=== PATIENT | female | born 1950 | race Caucasian/White ===

== ENCOUNTER → 2016-11-26 | Outpatient (CLI) | payer OTHER ==
--- NOTE | 2016-11-26 12:19 | FL ---
EXAMINATION TYPE: FL barium enema DATE OF EXAM: 11/26/2016 12:00 PM COMPARISON: NONE HISTORY: Incomplete colonoscopy 6 months ago. Anemia for last 2-3 months per order. TECHNIQUE: A double contrast barium enema study is performed. A total of 3 minutes 30 seconds of flu oroscopic time was utilized during procedure. FINDINGS: Insurance Salesman view of the abdomen shows overall nonspecific felt to be non-obstructive bowel gas p attern. Cholecystectomy clips are present. There are additional clips and sutures scattered throughou t the left mid abdomen and right upper pelvis from prior bowel surgery. There are numerous coils vent ral wall hernia repair surgery identified. Barium enema study was then performed. Exam is noted suboptimal due to patient's body habitus as well as having markedly redundant sigmoid colon, this causes overlap limiting evaluation particularly for polyps. There is no evidence of any obstructing or constricting lesion throughout the colon. Colon i s successfully filled to the cecum. There is diverticular disease throughout the colon most pronounce d involving the left and sigmoid colon. There is suspected successful filling to the cecum with a sm all segment right colon. This could be correlated with CT if desired to confirm Appendix was not filled. Terminal ileum was not refluxed. IMPRESSION: Suboptimal study, no obvious constricting mass identified. Diverticular disease noted. C onsider CT colongraphy if symptoms persist.
== END | disposition home or self-care (01) ==
LOC: RADFLMAIN 09:52
PROVIDERS: ATTEND Family Medicine
DX: K57.30 Diverticulosis of large intestine without perforation or abscess without bleeding (principal)
CPT/HCPCS: 74270

== ENCOUNTER → 2017-09-28 | Outpatient (CLI) | payer MEDICARE, OTHER ==
--- NOTE | 2017-09-28 09:49 | MR ---
EXAMINATION TYPE: MR thoracic spine wo/w con DATE OF EXAM: 09/28/2017 COMPARISON: NONE HISTORY: Mid back pain, tingling, F/U on MS Standard multiplanar, multisequence MRI departmental protocol Multiplanar, multisequence images of the thoracic spine were acquired. Diffusion weighted imaging was performed. FINDINGS: Paraspinal soft tissues are normal. There is mild to moderate levoscoliosis. Vertebral body height and alignment are maintained. There is a prominent hemangioma in the T4 vertebr al body. Cord signal is normal. No discal protrusion is seen. The intervertebral foramina are well maintained. There is mild spondylo sis deformans in the mid to lower dorsal spine. IMPRESSION: 1. NO ACUTE ABNORMALITY. 2. NO SIGNIFICANT COMPRESSIVE DISCOPATHY OR NEURAL COMPRESSION. 3. MILD DEGENERATIVE CHANGE.
== END | disposition home or self-care (01) ==
LOC: RADMRIMAIN 08:33
PROVIDERS: ATTEND Psychiatry & Neurology Neurology
DX: M47.814 Spondylosis without myelopathy or radiculopathy, thoracic region (principal)
CPT/HCPCS: 72157; A9581

== ENCOUNTER 2021-01-11 17:01 | Emergency (ER) | payer MEDICARE, OTHER ==
[2021-01-11 17:13] VITALS: RESP 18; TEMP 97
[2021-01-11] MEDS ORDERED: HYDROmorphone 0.5 MG/0.5 ML SYRINGE IVP STA (17:19)
[2021-01-11] MEDS ORDERED: KETOROLAC 15 MG/ML 1 ML VIAL IVP STA (17:19)
[2021-01-11] MEDS ORDERED: ONDANSETRON 4 MG/2 ML VIAL IVP STA (17:19)
--- NOTE | 2021-01-11 17:23 | ED ---
General Adult HPI - General Chief complaint: Fall Stated complaint: Fall Time Seen by Provider: 01/11/21 17:03 Source: patient, EMS Mode of arrival: EMS Limitations: no limitations - History of Present Illness Initial comments: 70 year-old female patient presents to the emergency department for evaluation of right lower leg and ankle pain. Patient slipped and fell prior to arrival. States she felt and heard a pop during the fall. She is having significant pain to the right lower leg and ankle. Denies any foot pain. Denies numbness or tingling to the foot. States she landed on her buttocks. Denies hitting her head or losing consciousness. Denies any low back pain. She did arrive by EMS, did not receive any pain medication. She denies use of blood thinners. Denies any other injury. Patient denies any headache, neck pain, chest pain, shortness of breath, dizziness, weakness, abdominal pain, nausea, vomiting, or difficulties with bowel movements or urination. - Related Data Home Medications Medication Instructions Recorded Confirmed Calcipotriene 02/07/15 02/07/15 Cyanocobalamin [Vitamin B-12] 1,000 mcg PO DAILY 02/07/15 02/07/15 Donepezil HCl 10 mg PO DAILY 02/07/15 02/07/15 Furosemide 20 mg PO DAILY 02/07/15 02/07/15 Gabapentin [Neurontin] 300 mg PO BID 02/07/15 02/07/15 Iron 65 mg PO DAILY 02/07/15 02/07/15 Potassium Chloride ER [K-Dur 10] 10 meq PO DAILY 02/07/15 02/07/15 Sertraline HCl [Zoloft] 100 mg PO DAILY 02/07/15 02/07/15 Spironolactone 50 mg PO DAILY 02/07/15 02/07/15 Triamcinolone 0.1% Cream [Kenalog 02/07/15 02/07/15 0.1% Cream] buPROPion HCL [Bupropion HCl Sr] 200 mg PO BID 02/07/15 02/07/15 traMADol HCL [Ultram] 100 mg PO BID 02/07/15 02/07/15 traZODone HCL [Desyrel] 50 mg PO HS 02/07/15 02/07/15 Allergies Allergy/AdvReac Type Severity Reaction Status Date / Time amoxicillin trihydrate AdvReac Rash/Hives Verified 02/07/15 10:45 [From Augmentin] ciprofloxacin [From Cipro] AdvReac Rash/Hives Verified 02/07/15 10:45 ciprofloxacin HCl AdvReac Rash/Hives Verified 02/07/15 10:45 [From Cipro] potassium clavulanate AdvReac Rash/Hives Verified 02/07/15 10:45 [From Augmentin] Review of Systems ROS Statement: Those systems with pertinent positive or pertinent negative responses have been documented in the HPI. ROS Other: All systems not noted in ROS Statement are negative. Past Medical History Past Psychological History: Depression Smoking Status: Former smoker Past Alcohol Use History: None Reported Past Drug Use History: None Reported General Exam Limitations: no limitations General appearance: alert, in no apparent distress, other (Physical well- developed, well-nourished adult female patient in no acute distress. Vital signs upon presentation are temperature 97.0F, pulse 80, respirations 18, blood pressure 140/92, pulse ox 95% on room air.) Head exam: Present: atraumatic, normocephalic, normal inspection Eye exam: Present: normal appearance, PERRL, EOMI. Absent: scleral icterus, conjunctival injection, periorbital swelling ENT exam: Present: normal exam, normal oropharynx, mucous membranes moist Neck exam: Present: normal inspection, full ROM, other (Nontender, no step-off, no deformity to firm midline palpation of the posterior cervical spine. Full range of motion without pain or limitation.). Absent: tenderness, meningismus, lymphadenopathy Respiratory exam: Present: normal lung sounds bilaterally. Absent: respiratory distress, wheezes, rales, rhonchi, stridor Cardiovascular Exam: Present: regular rate, normal rhythm, normal heart sounds. Absent: systolic murmur, diastolic murmur, rubs, gallop, clicks GI/Abdominal exam: Present: soft, normal bowel sounds. Absent: distended, tenderness, guarding, rebound, rigid Extremities exam: Present: full ROM, tenderness (Right distal lower extremity), normal capillary refill, other (She has soft tissue swelling surrounding the right distal lower leg and ankle. There is ecchymosis over the anterior aspect of the lower leg. Skin is otherwise pink, warm, dry. Cap refill less than 3 seconds. Pedal pulses 2+. No proximal tib-fib tenderness. No fifth metatarsal tenderness). Absent: normal inspection, pedal edema, joint swelling, calf tenderness Back exam: Present: normal inspection, other (Nontender, no step-off, no deformity to firm midline palpation of the thoracic and lumbar vertebrae. Full range of motion without pain or limitation.). Absent: vertebral tenderness Neurological exam: Present: alert, oriented X3, CN II-XII intact Psychiatric exam: Present: normal affect, normal mood Skin exam: Present: warm, dry, intact, normal color. Absent: rash Course Vital Signs 01/11/21 01/11/21 01/11/21 17:05 17:12 18:12 Temperature 97 F L Pulse Rate 80 96 72 Respiratory 18 18 18 Rate Blood Pressure 140/92 124/76 102/81 O2 Sat by Pulse 95 98 98 Oximetry Procedures - Orthopedic Splinting/Casting Injury #1 Side: right Lower Extremity Injury Location: short leg, ankle Lower Extremity Immobilizer: posterior splint, stirrup splint, Onel wrap, synthetic pre-padded splint Additional Comments: Neurovascular status intact after spent application. Skin to the foot is pink, warm, dry. Cap refill less than 3 seconds. Patient denies numbness or tingling. Medical Decision Making - Medical Decision Making 70 year-old female patient presented to the emergency department for evaluation of right ankle and lower leg pain. Physical examination revealed significant soft tissue swelling and ecchymosis over the distal right lower leg and ankle. Neurovascular status is intact. Pain medication was provided. Xray was obtained and showed an oblique fracture through the distal tib/fib. She was placed in a posterior OCL and Ankle stirrup splint. Orthopedics was consulted and recommeded transfer to [facility] for ortho/trauma. [facility] was contacted, their ortho specialist Dr. Pinzon agreed to care for the patient. She will be sent to their ED. Patient is agreeable with this plan. Case discussed with my attending Dr. Barcenas. - Radiology Data Radiology results: report reviewed, image reviewed Reviews of the right ankle are obtained. Report was reviewed in its entirety. Impression by Dr. Bhat shows acute nondisplaced fractures of the distal tibia and fibula. Disposition Clinical Impression: Closed fracture of distal end of right fibula and tibia Disposition: OTHER INSTITUTION NOT DEFINED Condition: Serious Referrals: Rosita Srivastava DO [Primary Care Provider] - 1-2 days - Out of Hospital Transfer - Req. Specs Out of Hospital Transfer - Requested Specifics: Other Emergency Center ([facility])
--- NOTE | 2021-01-11 17:59 | XR ---
EXAMINATION TYPE: XR ankle complete RT DATE OF EXAM: 01/11/2021 COMPARISON: NONE HISTORY: Fall. Pain. TECHNIQUE: 3 views FINDINGS: There is nondisplaced oblique fracture of the distal tibial and fibular metaphyses. Ankle m ortise is anatomic. There is soft tissue swelling around the ankle. There is mild plantar calcaneal s purring. Subtalar joint is intact. IMPRESSION: Acute nondisplaced fractures of the distal tibia and fibula.
[2021-01-11] MEDS ORDERED: HYDROmorphone 1 MG/ML 1 ML SYRINGE IVP STA (18:23)
[2021-01-11 18:35] VITALS: BP 102/81; PULSE 72
== END 2021-01-11 19:20 | disposition other institution (70) ==
LOC: EC 17:01
DX: S82.64XA Nondisplaced fracture of lateral malleolus of right fibula, initial encounter for closed fracture (principal); S82.234A Nondisplaced oblique fracture of shaft of right tibia, initial encounter for closed fracture; F32.9 Major depressive disorder, single episode, unspecified; Z87.891 Personal history of nicotine dependence; W01.0XXA Fall on same level from slipping, tripping and stumbling without subsequent striking against object, initial encounter
CPT/HCPCS: 73610; 99284; 29515; J2405; J1170 ×2; J1885

== ENCOUNTER → 2022-10-01 | Outpatient (CLI) | payer MEDICARE ==
--- NOTE | 2022-10-03 07:33 | MM ---
Reason for Exam: Screening (asymptomatic). Last mammogram was performed 3 year(s) and 1 month(s) ago. Patient History: Menarche at age 13. First Full-Term at age 23. Postmenopausal. Patient used Hormonal Contraceptives for 1 year. 1994, Benign Cyst Aspiration on the left side. 1994, Benign Excisional Biopsy on the left side. Sister had breast cancer, age 42. Mother had breast cancer, age 55. Sister had breast cancer, age 60. Risk Values: Laverne 5 year model risk: 8.9%. NCI Lifetime model risk: 25.0%. Prior Study Comparison: 02/01/2010 Bilateral Screening Mammogram, [facility]. 06/06/2012 Bilateral Screening Mammogram, [facility]. 04/21/2014 Bilateral Screening Mammogram, [facility]. 09/03/2019 Bilateral MG screening mammo w CAD - 2, [facility]. Tissue Density: The breast tissue is heterogeneously dense. This may lower the sensitivity of mammography. Findings: Analyzed By CAD. There is no suspicious group of microcalcifications or new suspicious mass in either breast. Overall Assessment: Negative, BI-RAD 1 Management: Screening Mammogram of both breasts in 1 year. A clinical breast exam by your physician is recommended on an annual basis and results should be correlated with mammographic findings. Electronically signed and approved by: Da Hernandes M.D. Radiologis
== END | disposition home or self-care (01) ==
LOC: RADMAMWWP 16:00
PROVIDERS: ATTEND Family Medicine
DX: Z12.31 Encounter for screening mammogram for malignant neoplasm of breast (principal); Z80.3 Family history of malignant neoplasm of breast
CPT/HCPCS: 77063; 77067

== ENCOUNTER → 2023-01-24 | Outpatient (CLI) | payer MEDICARE ==
[2023-01-24 16:01] LABS: African American GFR (CKD) >90 (>60 ml/min/1.73 sqM); Blood Urea Nitrogen 20 mg/dL (7-17); Non-African American GFR(CKD) >90 (>60 ml/min/1.73 sqM)
--- NOTE | 2023-01-24 18:56 | CT ---
EXAMINATION TYPE: CT abdomen pelvis w con CT DLP: 1768 mGycm, Automated exposure control for dose reduction was used. DATE OF EXAM: 01/24/2023 5:44 PM COMPARISON: None CLINICAL INDICATION:Female, 72 years old with history of R59.0; Frequent UTIs, swollen lymph nodes. TECHNIQUE: Axial CT of the abdomen and pelvis. Sagittal and coronal reformats were created on a [employer] workstation. Contrast used:100 mL of Isovue 300 with IV Contrast, Oral contrast used: with Oral Contrast FINDINGS: LOWER CHEST: Unremarkable ABDOMEN LIVER: Unremarkable GALLBLADDER AND BILE DUCTS: Gallbladder is surgically absent. PANCREAS: Pancreatic divisum. SPLEEN: Unremarkable. ADRENAL GLANDS: Unremarkable. KIDNEYS AND URETERS: No evidence of hydronephrosis or renal calculus. The ureters are unremarkable. Large left renal cyst measuring 8.4 cm. There is no evidence of obstructive uropathy. No right renal calculi. Left nonobstructing 5 mm calculus. PELVIS BLADDER: Bladder marcelo are within normal limits for thickness. The bladder is partially distended. REPRODUCTIVE: Foci of gas is seen within the endometrium ABDOMEN & PELVIS STOMACH AND BOWEL: No evidence of bowel obstruction. Small hiatal hernia. Scattered colonic diverticu la are present. PERITONEUM/RETROPERITONEUM: No evidence of pneumoperitoneum or free fluid. VASCULATURE: Mild atherosclerotic calcifications are present throughout the abdominal aorta and its b ranches. No evidence of aortic aneurysm. MUSCULOSKELETAL: No acute osseous abnormalities. Mild disc degeneration changes are present throughou t the thoracolumbar spine. There is scoliosis changes to the spine including dextroscoliosis apex L2. LYMPH NODES: No gross evidence for lymphadenopathy. Prominent bilateral inguinal lymph nodes. SOFT TISSUE/ABDOMINAL WALL: Subcutaneous peripherally calcified low abdominal wall granulomas/gliosis . Fat-containing ventral wall hernia measuring up to 2.5 cm at the neck. Post surgical changes anteri or abdominal wall. IMPRESSION: 1. Gas within the uterine endometrium correlate for recent intervention. Consider direct visualizati on. Correlate for infection. 2. No obvious abnormality of the bladder. Marcelo are within normal limits for thickness. 3. Small hiatal hernia. 4. Left nonobstructing 5 mm renal calculus. 5. Clonic diverticulosis. 5. Fat-containing ventral wall hernia 6. Pancreatic divisum.
== END | disposition home or self-care (01) ==
LOC: RADCTMAIN 15:06
PROVIDERS: ATTEND Family Medicine
DX: K44.9 Diaphragmatic hernia without obstruction or gangrene (principal); N20.0 Calculus of kidney; K43.9 Ventral hernia without obstruction or gangrene; K57.30 Diverticulosis of large intestine without perforation or abscess without bleeding; Q45.3 Other congenital malformations of pancreas and pancreatic duct; R59.0 Localized enlarged lymph nodes
CPT/HCPCS: 82565; 84520; 74177; Q9967

== ENCOUNTER → 2025-02-26 | Outpatient (CLI) | payer MEDICARE ==
[~2025-02-26] MED LIST: REGADENOSON 0.4 MG/5 ML SYRINGE IV PRN
--- NOTE | 2025-02-26 12:59 | CA ---
Lexiscan Nuclear Stress Test Report Name: Tyron Perry Exam Date: 02/26/2025 10:39 Exam Location: [facility] Ht (in): 65 Wt (lb): 300 BSA: 2.35 Ordering Phys: Arsen Srivastava MD Referring Phys: Arsen Srivastava MD Technologist: JEAN LEO Age: 74 Gender: F : 1950 Procedure CPT: Indications: I20.89 ANGINA ICD-10 Codes: Patient History: HTN, PRIOR SMOKER, HYPERCHOLESTEROLEMIA Medications: SATOLOL,,,, ELIQUIS,,,, IRON,,,, PRANIPEXOLE,,,, GABAPENTIN,,,, BACKAFIN,,,, FUROSEMIDE,,,, DONEPEZIL,,,, OXYBUTIN,,,, Nitroglycerin,,,, HYDROCODONE,,,, DULOXITINE,,, Meds past 24 hrs: Pretest Chest Pain: STRESS TEST Lexiscan Protocol Exercise Duration (min:sec): 02:[address] Depressions (mm): Angina Score: Sheehan Score: Resting HR (bpm): 84 Peak HR (bpm): 125 Resting BP (mmHg): 133 / 78 Peak BP (mmHg): 133 / 78 MPHR: 148 Target HR: 126 % MPHR: 84 METS: 1.0 Total Dose: Peak Dose: Atropine: Double Product: 92730 BP Response: Stress Termination: INFUSION COMPLETE Stress Symptoms: NO SYMPTOMS Stress Summary: ECG ANALYSIS Resting ECG: Stress ECG: CONCLUSIONS RESTING EKG: Atrial fibrillation, heart rate 84 bpm Patient recieved IV infusion of Lexiscan 0.4mg and at peak infusion STRESS EKG showed: [No significant ST-T wave changes diagnostic for ischemia by ST segment analysis] ARRYTHMIAS: No significant dropping beats noted during the stress test. Patient was in atrial fibrillation throughout the stress test CONCLUSION: 1. Normal hemodynamic and clinical response to Lexiscan infusion. 2. Non-ischemic EKG response to lexiscan infusion Please refer to the nuclear imaging portion of this stress test for complete interpretation of the study. Dr Mahesh Blanco (Electronically Signed) Final Date: 26 February 2025 12:58
--- NOTE | 2025-02-26 13:24 | NM ---
EXAMINATION TYPE: NM stress lexiscan cardiolite DATE OF EXAM: 02/26/2025 COMPARISON: NONE CLINICAL INDICATION: Female, 74 years old with history of I20.89 angina; TECHNIQUE: After the intravenous administration of 9.83 mCi Tc 99m Sestamibi - Cardiolite resting SP ECT images acquired 50 minutes post injection. The patient received 0.4mg Lexiscan, 26.6 mCi Tc 99m Sestamibi - Stress images obtained [address] injection FINDINGS: Review of stress and rest SPECT images demonstrates small fixed perfusion defect along the mid to api suzi anteroseptal wall as well as the apical inferolateral wall. These do not clearly enlarged on stre ss images though polar maps indicate small amount of associated reversibility at the anteroseptal wal l. Gated analysis shows normal wall motion with an estimated left ventricular ejection fraction of 62 %. TID is calculated at 0.95, upper limits of normal. IMPRESSION: 1. There may be a couple small areas of old infarct, one located at the mid to apical anteroseptal wa ll and one located at the apical inferolateral wall. Clinically correlate. 2. While no discrete reversibility is seen, polar maps suggest there may be some minimal dorian-infarct ischemia at the anteroseptal wall. Again, clinically correlate. [facility], Workstation: [id number], 02/26/2025 1:22 PM
== END | disposition home or self-care (01) ==
LOC: RADNMMAIN 08:42
PROVIDERS: ATTEND Family Medicine
DX: I50.22 Chronic systolic (congestive) heart failure (principal); I20.89 Other forms of angina pectoris; I48.91 Unspecified atrial fibrillation
CPT/HCPCS: 93017; 78452; A9500; J2785